=== PATIENT | male | born 1985 | race Caucasian/White ===

== ENCOUNTER → 2017-04-25 | Outpatient (REF) ==
--- NOTE | 2017-04-25 15:28 | DI ---
EXAM: PA and lateral views of the chest HISTORY: Employment screening evaluation COMPARISON: Chest x-ray 03/25/2014 and multiple priors FINDINGS: The cardiomediastinal silhouette is normal. There is no pneumothorax or pleural effusion. There is no consolidation, nodule or mass. The osseous structures are unremarkable. IMPRESSION: No acute cardiopulmonary process
== END ==
LOC: RAD 14:50
DX: Z02.89 Encounter for other administrative examinations (principal)